=== PATIENT | female | born 1975 | race Caucasian/White ===

== ENCOUNTER 2016-09-18 00:30 | Emergency (ER) | payer MEDICAID ==
[~2016-09-18] VITALS: Ht 172.7 cm; Wt 78.7 kg
[2016-09-18 00:33] VITALS: BP 107/69
== END 2016-09-18 02:09 | disposition left against medical advice (07) ==
LOC: ED 02:03
DX: S09.90XA Unspecified injury of head, initial encounter (principal); Y04.0XXA Assault by unarmed brawl or fight, initial encounter; Y93.89 Activity, other specified; Y99.8 Other external cause status; Y92.89 Other specified places as the place of occurrence of the external cause; Z53.21 Procedure and treatment not carried out due to patient leaving prior to being seen by health care provider